=== PATIENT | female | born 1980 | race Caucasian/White ===

== ENCOUNTER 2018-10-29 15:52 | Emergency (ER) | payer BC ==
[~2018-10-29] VITALS: Ht 167.6 cm; Wt 72.6 kg
[2018-10-29 16:05] VITALS: BP_SYST 138
[2018-10-29] MEDS ORDERED: NACL 0.9% 1,000 ML IV ONE (17:38)
[2018-10-29] MEDS ORDERED: DIPHENHYDRAMINE INJ 50 MG/ML VIAL IVP ONE (17:45)
[2018-10-29] MEDS ORDERED: MORPHINE 4 MG/ML INJ. SYRINGE IVP ONE (17:45)
[2018-10-29] MEDS ORDERED: ONDANSETRON HCL 4 MG/2 ML VIAL IVP ONE (17:45)
[2018-10-29 17:53] LABS: BILIRUBIN,URINE NEGATIVE (NEGATIVE); BLOOD, URINE NEGATIVE (NEGATIVE); CLARITY/URINE CLEAR (CLEAR); COLOR,URINE YELLOW (YELLOW); GLUCOSE,URINE NEGATIVE (NEGATIVE); KETONES,URINE NEGATIVE (NEGATIVE); LEUKOCYTE ESTERASE ,URINE NEGATIVE (NEGATIVE); NITRITE, URINE NEGATIVE (NEGATIVE); PROTEIN URINE NEGATIVE (NEGATIVE); UROBILINOGEN,URINE 0.2 (0.2-1.0)
[2018-10-29 17:58] LABS: BASOPHILS % (AUTO) 0.5 % (0.0-2.0); EOSINOPHILS # (AUTO) 0.1 K/uL (0.0-0.4); EOSINOPHILS % (AUTO) 2.1 % (0.0-4.0); LYMPHOCYTES # (AUTO) 2.2 K/uL (1.0-5.5); MEAN CORPUSCULAR HEMOGLOBIN 33 pg (27-31); MEAN CORPUSCULAR HGB CONC 34 % (32-36); MEAN CORPUSCULAR VOLUME 98 fL (79.0-98.0); MONOCYTES # (AUTO) 0.3 K/uL (0.0-1.0); MONOCYTES % (AUTO) 5.6 % (1.7-9.3); NEUTROPHILS # (AUTO) 3.2 K/uL (1.8-7.7); NEUTROPHILS % (AUTO) 54.8 % (40.0-70.0); PLATELET COUNT (AUTO) 293 K/uL (130-430); RED CELL DISTRIBUTION WIDTH 12.7 % (9.0-15.0); WHITE BLOOD COUNT (AUTO) 5.9 K/uL (4.8-10.8)
[2018-10-29 18:25] LABS: CALCIUM 8.9 mg/dL (8.4-11.0); CREATININE 0.52 mg/dL (0.55-1.30); POTASSIUM 3.6 mmol/L (3.5-5.1)
[2018-10-29 18:30] LABS: TOTAL BILIRUBIN 0.3 mg/dL (0.0-1.0)
[2018-10-29 19:48] VITALS: BP_SYST 138
== END 2018-10-29 19:48 | disposition home or self-care (01) ==
LOC: SED 15:52
DX: R10.11 Right upper quadrant pain (principal); J45.909 Unspecified asthma, uncomplicated; R03.0 Elevated blood-pressure reading, without diagnosis of hypertension
CPT/HCPCS: 36415; 74018; 76700; 80053; 81003; 81025; 83690; 85025; 96374; 96375; 99284; J1200; J2270; J2405; J7030

== ENCOUNTER 2018-11-09 18:33 | Emergency (ER) | payer BC ==
[~2018-11-09] VITALS: Ht 167.6 cm; Wt 74.8 kg
[2018-11-09 18:42] VITALS: BP_SYST 124
[2018-11-09 19:34] VITALS: BP_SYST 118
== END 2018-11-09 19:34 | disposition home or self-care (01) ==
LOC: SED 18:33
DX: I49.3 Ventricular premature depolarization (principal); J45.909 Unspecified asthma, uncomplicated; R03.0 Elevated blood-pressure reading, without diagnosis of hypertension
CPT/HCPCS: 99281

== ENCOUNTER 2019-01-19 15:00 | Emergency (ER) | payer BC ==
[~2019-01-19] VITALS: Ht 167.6 cm; Wt 72.6 kg
[2019-01-19 15:14] VITALS: BP_SYST 139
--- NOTE | 2019-01-19 15:24 | NUR ---
Patient to ER bed 6 to gown for evaluation. Side rails up. Report given to [employer] PAINTER.
--- NOTE | 2019-01-19 15:25 | NUR ---
Pt is here for c/o bloating and mid abd pain with nausea, diarrhea, and vomiting since Friday. Pt was in ED in [place], and was sent home. Pt has hx of IBS, takes protonix and zofran at home. Last dose of Zofran was this morning.
--- NOTE | 2019-01-19 15:26 | NUR ---
Dr. Machado at bedside to assess pt.
[2019-01-19] MEDS: KETOROLAC TROMETHAMINE 30 MG VIAL IVP ONE (16:10)
--- NOTE | 2019-01-19 16:15 | NUR ---
Pt is taken to CT after questionnaire for IV contrast is done. No acute distress noted.
[2019-01-19 16:18] LABS: BASOPHILS % (AUTO) 0.4 % (0.0-2.0); EOSINOPHILS # (AUTO) 0.1 K/uL (0.0-0.4); EOSINOPHILS % (AUTO) 2.9 % (0.0-4.0); HEMATOCRIT 34.1 % (36-48); HEMOGLOBIN 11.6 g/dL (12.0-16.0); LYMPHOCYTES # (AUTO) 1.6 K/uL (1.0-5.5); LYMPHOCYTES % (AUTO) 33.3 % (20.5-51.5); MEAN CORPUSCULAR HEMOGLOBIN 33 pg (27-31); MEAN CORPUSCULAR HGB CONC 34 % (32-36); MEAN CORPUSCULAR VOLUME 98 fL (79.0-98.0); MONOCYTES # (AUTO) 0.3 K/uL (0.0-1.0); MONOCYTES % (AUTO) 5.8 % (1.7-9.3); NEUTROPHILS # (AUTO) 2.8 K/uL (1.8-7.7); NEUTROPHILS % (AUTO) 57.6 % (40.0-70.0); PLATELET COUNT (AUTO) 276 K/uL (130-430); RED BLOOD CELL COUNT(AUTO) 3.49 MIL/uL (4.2-6.2); RED CELL DISTRIBUTION WIDTH 12.7 % (9.0-15.0); WHITE BLOOD COUNT (AUTO) 4.8 K/uL (4.8-10.8)
[2019-01-19 16:33] LABS: CALCIUM 8.4 mg/dL (8.4-11.0); CREATININE 0.43 mg/dL (0.55-1.30); POTASSIUM 3.3 mmol/L (3.5-5.1)
[2019-01-19] MEDS ORDERED: IOHEXOL 100 ML IV ONE (16:33)
[2019-01-19 16:38] LABS: ALBUMIN 3.5 g/dL (3.4-4.8); TOTAL BILIRUBIN 0.4 mg/dL (0.0-1.0)
[2019-01-19] MEDS: NACL 0.9% 1,000 ML IV ONE (16:49)
--- NOTE | 2019-01-19 17:00 | NUR ---
Pt is resting in bed comfortably, no complaints.
--- NOTE | 2019-01-19 18:46 | NUR ---
Patient given written and verbal discharge instructions and verbalizes understanding. ER MD discussed with patient the results and treatment provided. Patient in stable condition. ID arm band removed. IV catheter removed intact and dressing applied, no active bleeding.Rx of lomotil and zofran given. Patient educated on pain management and to follow up with PMD. Pain Scale 0.Opportunity for questions provided and answered. Medication side effect fact sheet provided.
[2019-01-19 18:51] VITALS: BP_SYST 100
== END 2019-01-19 18:51 | disposition home or self-care (01) ==
LOC: SED 15:00
DX: K52.9 Noninfective gastroenteritis and colitis, unspecified (principal); R03.0 Elevated blood-pressure reading, without diagnosis of hypertension; J45.909 Unspecified asthma, uncomplicated
CPT/HCPCS: 36415; 74177; 80053; 81025; 83690; 85025; 96361; 96374; 99284; J1885; J7030; Q9967